=== PATIENT | male | born 1955 | race Caucasian/White ===

== ENCOUNTER 2024-10-18 09:54 | Emergency (ER) | payer OTHER, SELFPAY ==
[2024-10-18 10:08] VITALS: BP 136/70
--- NOTE | 2024-10-18 11:13 | ED.MUSCINJ ---
HPI-Injury
General
Chief Complaint: Musculo-Skeletal Complaint
Source: patient and spouse
Exam Limitations: none
Time Seen by Provider: 10/18/24 10:45
Nursing documentation reviewed up to this point in time: agreed with
History of Present Illness-Injury
Initial Injury comments:
69-year-old male with history of A-fib on Eliquis, NIDDM, HTN, HLD, left knee surgery x 5 presents for left lateral hip pain. Patient states 1 week ago he went to step over his granddaughter who was on the floor, she put her legs up and he stumbled
over her legs twisting his legs, no significant fall or injury. The next day he started to have pain in the left lateral hip area that has gradually increased and now radiates down the lateral aspect of his thigh to his knee. He has taken Tylenol
with some relief of the pain. He denies fever or chills.
Past History
Past History
ED Past Medical History: Arrthythmia (afib), HTN, Hypercholesterolemia and NIDDM
ED Past Surgical History: Appendectomy and Orthopedic
Review of Systems
Review of Systems
Allergies reviewed?: Yes
All Other Systems: ROS reviewed and negative except as documented in HPI and ROS
Constitutional: Denies fever
Respiratory: Denies trouble breathing
Cardiac: Denies chest pain
ABD/GI: Denies abdominal pain
Musculoskeletal: Reports other (pain left outer hip. Legs are large with limited ROM and pt uses cane )
Phy Exam
Physical Exam
Physical Exam:
GENERAL: No acute distress. A&Ox3.
CONSTITUTIONAL: Afebrile.
EYES: clear, conjunctivae normal
ENMT: moist mucus membranes
RESPIRATORY: Regular respirations, nonlabored, lungs clear.
CARDIOVASCULAR: Regular rate and rhythm, no murmurs, no rubs.
GI: Soft, nontender, normal BS
MUSCULOSKELETAL: Immediately tender to palpate over lateral left hip. Limited ROM due to pain. Well perfused.
SKIN: Warm, dry, pink
PSYCH: Normal mood and affect. Well kept, interactive and appropriate
NEUROLOGIC: Awake, alert and oriented. No focal neurological deficits
Injury Course
Orders/Labs/Results
Orders:
Orders
10/18/24 11:12
Dexamethasone [Decadron] 10 mg PO NOW STA
Hip, Left 2-3 Views [CR Hip - LT w/wo Pel 2-3 Vw*] Urgent
Comment:
Reason For Exam: pain after stumble 1 week ago
Include a pelvis x-ray?: No
10/18/24 11:13
Bedside Glucose- Treatment ONCE
10/18/24 12:55
Hydrocodone 5/APAP 325 [Heppner 5/325] 1 tablet PO NOW STA
Abnormal Lab Results
10/18/24
11:14
POC Glucose 137 H mg/dl
(70-99)
MDM/Problems Addressed
Differential Diagnosis Includes:
arthritis, bursitis of hip, fracture
MDM/Problems Addressed:
69-year-old male with history of A-fib on Eliquis, NIDDM, HTN, HLD, left knee surgery x 5 presents for left lateral hip pain. Patient states 1 week ago he went to step over his granddaughter who was on the floor, she put her legs up and he stumbled
over her legs twisting his legs, no significant fall or injury. The next day he started to have pain in the left lateral hip area that has gradually increased and now radiates down the lateral aspect of his thigh to his knee. He has taken Tylenol
with some relief of the pain. He denies fever or chills.
Xray left hip: DJD, nothing acute
Will treat for trochanteric bursitis, he has scheduled ortho appointment in 3 days.
*Critical Care Note
Total Time (30-74mins, 75-104mins- exclusive of procedures): Not Applicable
ED Attending Note
-
Portions of this chart may have been created with voice recognition software.� Occasional wrong word or��sound alike� substitutions may have occurred due to the inherent limitations of voice recognition software.
Discharge Plan
Departure
Patient Disposition: Home (Routine Discharge)
Date of Disposition: 10/18/24
Time of Disposition: 12:55
Patient with high blood pressure during this ER visit?: No
Condition: Good
Discharge Problem:
Trochanteric bursitis of left hip
Instructions: Hip pain in adults, Bursitis ED
Prescriptions:
New
prednisone 20 mg tablet
40 mg PO DAILY Qty: 6 0RF
hydrocodone-acetaminophen 5-300 mg tablet
1 tab PO Q6H PRN (Reason: Pain) Qty: 8 0RF
Referrals:
Your, Orthopedic doctor [Other] - Keep scheduled appt
Neel Gibson CRNP [Family Provider] -
Activity Restrictions/Additional Instructions:
As we discussed, you most likely have bursitis.
You may continue to use Tylenol for mild to moderate pain since it seems to help, and use the Vicodin which is hydrocodone if needed for worse pain.
Keep your appointment with the orthopedic doctor in 3 days as scheduled
I sent a prescription to your pharmacy for the pain medication Vicodin and also for prednisone 40 mg a day for 3 days, start the prednisone tomorrow as you were given a dose of steroid here today.
Interventions
Interventions:
*Risk Screen - Suicide Last Done: 10/18/24 10:08
*General Assessment Last Done: 10/18/24 11:43
*Neglect/Abuse Screening Last Done: 10/18/24 10:08
*ED- Fall Risk Assessment Last Done: 10/18/24 11:43
*ED COVID-19 Vaccine History Last Done: 10/18/24 11:43
*Nursing Disposition Last Done: 10/18/24 13:10
ED-Musculoskeletal Assessment Last Done: 10/18/24 11:44
Discharge Date and Time
Discharge Date/Time: 10/18/24 13:36
Print Language: AFGHAN
[2024-10-18 11:16] LABS: Glucose - Point of Care 137 mg/dl (70-99)
[2024-10-18] MEDS: DECADRON 10 MG PO (11:19)
[2024-10-18 11:43] VITALS: BMI 32.3
[2024-10-18] MEDS: NORCO 5/325 1 TABLET PO (12:59)
[2024-10-18 13:10] VITALS: BP 119/49
== END 2024-10-18 13:36 | disposition home or self-care (01) ==
LOC: EMR 09:54
PROVIDERS: EMERGENCY PHYSICIAN Emergency Medicine; FAMILY PHYSICIAN Nurse Practitioner Family
DX: M70.62 Trochanteric bursitis, left hip (principal); M16.12 Unilateral primary osteoarthritis, left hip; E11.9 Type 2 diabetes mellitus without complications; E78.00 Pure hypercholesterolemia, unspecified; I10 Essential (primary) hypertension; I48.91 Unspecified atrial fibrillation; Z79.01 Long term (current) use of anticoagulants; Z90.49 Acquired absence of other specified parts of digestive tract
CPT/HCPCS: 99284; 73502; 82962